=== PATIENT | female | born 1985 | race Two or more races ===

== ENCOUNTER 2023-01-11 16:57 | Inpatient (IN) | payer OTHER ==
[~2023-01-11] VITALS: Ht 152.4 cm; Wt 60.3 kg
--- NOTE | 2023-01-11 17:23 | NUR ---
SE RECIBE PTE ALERTA Y ORIENTADA X3 LA CUAL REFIERE VENIR POR INFECCION DE ORINA. PTE CON CULTIVO POSITIVO PARA E.COLI. SE MIDEN S/V Y SE COLOCA EN ANDREW DE ESPERA.
--- NOTE | 2023-01-11 18:28 | NUR ---
MR. GANT EDUCA A PTE SOBRE TX MEDICO ESTA REFIERE ENTENDER. SE ROXANA MUESTRAS DE LABORATORIO UTILIZANDO MEDIDAS ASEPTICAS.
[2023-01-11 18:43] LABS: HEMATOCRIT 36.6 % (36.0-45.00); HEMOGLOBIN 12.3 g/dL (12.0-15.00); MEAN CELL VOLUME 74.9 fL (80.00-100.00); MEAN CORPUSCULAR HEMOGLOBIN 25.1 pg (27.00-32.0); MEAN CORPUSCULAR HGB CONC 33.6 g/dl (32.0-36.0); PLATELET COUNT 301 K/uL (150-450); RED BLOOD COUNT 4.89 M/uL (4.00-6.00); RED CELL DISTRIBUTION WIDTH 14.9 % (11.5-14.5)
[2023-01-11 18:44] LABS: PH,URINE 6.5 (5.0-8.0); URINE APPEARANCE Clear; URINE BILIRRUBIN Negative (NEGATIVE); URINE BLOOD Negative; URINE COLOR Yellow; URINE GLUCOSE Negative (NEGATIVE); URINE LEUKOCYTE Negative; URINE NITRATE Positive; URINE PROTEIN Negative (NEGATIVE); URINE UROBILINOGEN 0.2 E.U./dl
[2023-01-11 18:48] LABS: URINE EPITHELIAL CELLS 18.5 uL (0.0-38.8); URINE WBC 6.4 uL (0.0-23.2)
[2023-01-11 19:02] LABS: CALCIUM 9.2 mg/dL (8.5-10.1); CREATININE SERUM 0.69 mg/dL (0.55-1.02); GFR 96.27; POTASSIUM 3.72 mEq/L (3.5-5.1)
[2023-01-11 19:13] LABS: URINE BACTERIA > 9821.5 uL (0.0-1933)
[2023-01-12 08:21] LABS: ALBUMIN 3.3 gm/dL (3.4-5.0); ALKALINE PHOSPHATASE 71 U/L (50-136); ALT/SGPT 15 U/L (12-78); ANION GAP 7 (10.0-20.0); AST/SGOT 11 U/L (15-37); BILIRUBIN TOTAL 0.21 mg/dL (0.3-1.2); BILIRUBIN,CONJUGATED < 0.10 mg/dL (0.0-0.2); BILIRUBIN,UNCONJUGATED 0.11 mg/dL (0.0-0.6); BLOOD UREA NITROGEN 11 mg/dL (7-18); BUN CREA RATIO 20 (7.0-25.0); CALCIUM 8.2 mg/dL (8.5-10.1); CARBON DIOXIDE 26 mEq/L (21-32); CHLORIDE 108 mmol/L (98-107); CREATININE SERUM 0.55 mg/dL (0.55-1.02); GFR 125.06; GLOBULINA 2.6 G/DL (2.4-3.5); GLUCOSE FASTING 92 mg/dL (65-100); OSMOLALITY SERUM 273 MOSM/KG (275-295); POTASSIUM 4.08 mEq/L (3.5-5.1); SODIUM 137 mmol/L (136-145); TOTAL PROTEIN 5.9 gm/dL (6.4-8.2)
[2023-01-12 08:22] LABS: C-REACTIVE PROTEIN < 0.29 MG/DL (0.00-0.29)
[2023-01-12 08:35] LABS: URINE APPEARANCE Clear; URINE BILIRRUBIN Negative (NEGATIVE); URINE BLOOD Negative; URINE COLOR Yellow; URINE GLUCOSE Negative (NEGATIVE); URINE LEUKOCYTE Negative; URINE NITRATE Negative; URINE PROTEIN Negative (NEGATIVE); URINE UROBILINOGEN 0.2 E.U./dl
[2023-01-12 08:41] LABS: URINE BACTERIA 71.7 uL (0.0-1933); URINE EPITHELIAL CELLS 11.1 uL (0.0-38.8); URINE WBC 33.6 uL (0.0-23.2)
[2023-01-12 09:14] LABS: URINE RBC 1.1 uL (0.0-20.8)
[2023-01-12 09:19] LABS: HEMATOCRIT 35.2 % (36.0-45.00); HEMOGLOBIN 11.8 g/dL (12.0-15.00); MEAN CELL VOLUME 74.8 fL (80.00-100.00); MEAN CORPUSCULAR HEMOGLOBIN 25.1 pg (27.00-32.0); MEAN CORPUSCULAR HGB CONC 33.5 g/dl (32.0-36.0); PLATELET COUNT 269 K/uL (150-450); RED CELL DISTRIBUTION WIDTH 15.6 % (11.5-14.5)
[2023-01-12 09:22] LABS: ERYTHROCYTE SEDIMENTATION RATE 9 mm/hr
[2023-01-12 13:59] LABS: INR 0.95
== END 2023-01-14 19:23 | disposition home or self-care (01) | DRG 690 ==
LOC: ER 16:57 → MEDJ 22:19
PROVIDERS: General Practice; ADMIT Internal Medicine; ATTEND Internal Medicine
PROC: BW21YZZ Computerized Tomography (CT Scan) of Abdomen and Pelvis using Other Contrast (ICD-10-PCS; principal; 2023-01-11)
DX: N39.0 Urinary tract infection, site not specified (principal); Z20.822 Contact with and (suspected) exposure to COVID-19